=== PATIENT | male | born 1935 | race Asian ===

== ENCOUNTER 2019-07-15 22:28 | Inpatient (IN) | payer MEDICARE, OTHER ==
[~2019-07-15] VITALS: Ht 170.2 cm; Wt 56.2 kg
[2019-07-15] MEDS ORDERED: HALOPERIDOL LACTATE 5 MG/1 ML VIAL IM ONE ×2 (23:00→23:45)
[2019-07-15] MEDS ORDERED: HALOPERIDOL LACTATE 5 MG/1 ML VIAL ONE (23:07)
[2019-07-15 23:20] LABS: BASOPHILS # (AUTO) 0.1 K/uL (0.0-8.0); BASOPHILS % (AUTO) 0.7 % (0.0-2.0); EOSINOPHILS # (AUTO) 0.4 K/uL (0.0-0.7); EOSINOPHILS % (AUTO) 4.6 % (0.0-7.0); HEMATOCRIT 34.1 % (36.7-47.1); HEMOGLOBIN 11.2 g/dL (12.5-16.3); LYMPHOCYTES # (AUTO) 2.7 K/uL (20.0-40.0); LYMPHOCYTES % (AUTO) 32.3 % (20.5-51.5); MEAN CORPUSCULAR HEMOGLOBIN 31.9 uug (23.8-33.4); MEAN CORPUSCULAR HGB CONC 33 g/dL (32.5-36.3); MEAN CORPUSCULAR VOLUME 97.4 fL (73.0-96.2); MONOCYTES # (AUTO) 0.7 K/uL (2.0-10.0); MONOCYTES % (AUTO) 8.8 % (0.0-11.0); NEUTROPHILS # (AUTO) 4.4 K/uL (1.8-8.9); NEUTROPHILS % (AUTO) 53.6 % (38.5-71.5); PLATELET COUNT (AUTO) 202 K/uL (152-348); WHITE BLOOD COUNT (AUTO) 8.3 K/uL (3.6-10.2)
[2019-07-15 23:27] LABS: CARBON DIOXIDE 27 mmol/L (21-32); CHLORIDE 106 mmol/L (98-107); CREATININE 2.1 mg/dL (0.6-1.3); GLUCOSE 93 mg/dL (74-106); POTASSIUM 4.4 mmol/L (3.5-5.1); UREA NITROGEN, BLOOD 49 mg/dL (7-18)
[2019-07-15 23:42] LABS: ACETAMINOPHEN < 2.0 ug/mL (10-30); ALANINE AMINOTRANSFERASE 20 U/L (16-63); ALKALINE PHOSPHATASE 119 U/L (50-136); ASPARTATE AMINOTRANSFERASE 18 U/L (15-37); BILIRUBIN,DIRECT 0.1 mg/dL (0.0-0.2); BILIRUBIN,TOTAL 0.4 mg/dL (0.2-1.0); TOTAL PROTEIN, SERUM 7.4 g/dL (6.4-8.2)
[2019-07-15 23:48] LABS: ETHANOL < 3 MG/DL (0-0)
[2019-07-16 00:38] LABS: *BILIRUBIN,URIN NEGATIVE (NEGATIVE); *BLOOD, URINE NEGATIVE (NEGATIVE); *CLARITY,URINE CLEAR (CLEAR); *COLOR,URINE YELLOW (YELLOW); *KETONES,URINE NEGATIVE (NEGATIVE); *UROBILINOGEN,URINE 0.2 E.U./dl (NORMAL); LEUKOCYTE ESTERASE ,URINE NEGATIVE (NEGATIVE); NITRITE, URINE NEGATIVE (NEGATIVE); UGLUCOSE NEGATIVE (NEGATIVE)
[2019-07-16 00:50] VITALS: BP 157/88
[2019-07-16 00:53] LABS: *AMPHETAMINE, URINE NEGATIVE (NEGATIVE); *BARBITURATE, URINE NEGATIVE (NEGATIVE); *CANNABINOID, URINE NEGATIVE (NEGATIVE); *COCCAINE, URINE NEGATIVE (NEGATIVE); *OPIATE, URINE NEGATIVE (NEGATIVE); *PHENCYCLIDINE SCREEN,URINE NEGATIVE (NEGATIVE)
[2019-07-16] MEDS ORDERED: LORAZEPAM 0.5 MG TABLET PO PRN (01:30)
[2019-07-16] MEDS ORDERED: MAG HYDROX/AL HYDROX/SIMETH 30 ML LIQUID UDC PO PRN (01:30)
[2019-07-16] MEDS ORDERED: MAGNESIUM HYDROXIDE 30 ML LIQUID UDC PO PRN (01:30)
[2019-07-16] MEDS ORDERED: ACETAMINOPHEN 325 MG TABLET PO PRN (01:30)
[2019-07-16] MEDS ORDERED: BLOOD SUGAR DIAGNOSTIC 1 EACH STRIP VI ONE (01:30)
[2019-07-16 07:30] VITALS: BP 161/96
[2019-07-16] MEDS ORDERED: LOSARTAN POTASSIUM 25 MG TABLET PO SCH (10:45)
[2019-07-16] MEDS: CHOLECALCIFEROL 1,000 UNIT TABLET PO SCH (11:15)
[2019-07-16] MEDS: MULTIVIT, IRON, MIN NO. 8, FA TABLET PO SCH (11:15)
[2019-07-16 16:32] VITALS: BP 141/96
[2019-07-16] MEDS: BENZTROPINE MESYLATE 0.5 MG TABLET PO SCH (17:37)
[2019-07-16] MEDS: HALOPERIDOL 0.5 MG TABLET PO SCH (17:37)
[2019-07-16 20:46] VITALS: BP 156/78
[2019-07-17 07:30] VITALS: BP 147/86
[2019-07-17] MEDS: BENZTROPINE MESYLATE 0.5 MG TABLET PO SCH ×2 (11:11→17:06)
[2019-07-17] MEDS: CHOLECALCIFEROL 1,000 UNIT TABLET PO SCH (11:11)
[2019-07-17] MEDS: AMLODIPINE 5 MG TABLET PO SCH (11:12)
[2019-07-17] MEDS: HALOPERIDOL 0.5 MG TABLET PO SCH ×2 (11:12→17:06)
[2019-07-17] MEDS: MULTIVIT, IRON, MIN NO. 8, FA TABLET PO SCH (11:12)
[2019-07-17 15:23] VITALS: BP 148/84
[2019-07-17 20:21] VITALS: BP 151/84
[2019-07-18 07:30] VITALS: BP 120/81
[2019-07-18] MEDS: CHOLECALCIFEROL 1,000 UNIT TABLET PO SCH (08:42)
[2019-07-18] MEDS: AMLODIPINE 5 MG TABLET PO SCH (08:43)
[2019-07-18] MEDS: HALOPERIDOL 0.5 MG TABLET PO SCH ×2 (08:43→17:06)
[2019-07-18] MEDS: BENZTROPINE MESYLATE 0.5 MG TABLET PO SCH ×2 (08:43→17:06)
[2019-07-18] MEDS: MULTIVIT, IRON, MIN NO. 8, FA TABLET PO SCH (08:44)
[2019-07-18 13:21] LABS: *BILIRUBIN,URIN NEGATIVE (NEGATIVE); *BLOOD, URINE NEGATIVE (NEGATIVE); *CLARITY,URINE CLEAR (CLEAR); *COLOR,URINE LIGHT YELLOW (YELLOW); *KETONES,URINE NEGATIVE (NEGATIVE); *UROBILINOGEN,URINE 0.2 E.U./dl (NORMAL); LEUKOCYTE ESTERASE ,URINE NEGATIVE (NEGATIVE); NITRITE, URINE NEGATIVE (NEGATIVE); PH,URINE 6.5 (5.0-8.0); UGLUCOSE NEGATIVE (NEGATIVE)
[2019-07-18 14:26] LABS: *CREATININE,URINE < 13.0 mg/dL (30-125)
[2019-07-18 15:13] VITALS: BP 135/80
[2019-07-18 16:01] LABS: *URINE TOTAL PROTEIN RANDOM < 6.0 mg/dL (<150/24HR)
[2019-07-18 20:22] VITALS: BP 132/59
[2019-07-19 07:30] VITALS: BP 117/79
[2019-07-19] MEDS: HALOPERIDOL 0.5 MG TABLET PO SCH ×2 (08:52→16:54)
[2019-07-19] MEDS: CHOLECALCIFEROL 1,000 UNIT TABLET PO SCH (08:52)
[2019-07-19] MEDS: BENZTROPINE MESYLATE 0.5 MG TABLET PO SCH ×2 (08:52→16:54)
[2019-07-19] MEDS: AMLODIPINE 5 MG TABLET PO SCH (08:52)
[2019-07-19] MEDS: POLYVINYL ALCOHOL OPHT DROPS 15 ML BOTTLE EACHEYE PRN (08:53)
[2019-07-19] MEDS: MULTIVIT, IRON, MIN NO. 8, FA TABLET PO SCH (08:53)
[2019-07-19 15:50] VITALS: BP 110/63
[2019-07-19 20:58] VITALS: BP 132/80
[2019-07-20] MEDS: POLYVINYL ALCOHOL OPHT DROPS 15 ML BOTTLE EACHEYE PRN ×2 (00:56→22:11)
[2019-07-20 07:30] VITALS: BP 138/82
[2019-07-20 07:56] LABS: BASOPHILS # (AUTO) 0.1 K/uL (0.0-8.0); BASOPHILS % (AUTO) 0.8 % (0.0-2.0); EOSINOPHILS # (AUTO) 0.5 K/uL (0.0-0.7); HEMATOCRIT 33.5 % (36.7-47.1); HEMOGLOBIN 10.9 g/dL (12.5-16.3); LYMPHOCYTES # (AUTO) 2.1 K/uL (20.0-40.0); LYMPHOCYTES % (AUTO) 27.7 % (20.5-51.5); MEAN CORPUSCULAR HEMOGLOBIN 31.7 uug (23.8-33.4); MEAN CORPUSCULAR HGB CONC 32 g/dL (32.5-36.3); MEAN CORPUSCULAR VOLUME 97.8 fL (73.0-96.2); MONOCYTES # (AUTO) 0.7 K/uL (2.0-10.0); MONOCYTES % (AUTO) 8.8 % (0.0-11.0); NEUTROPHILS # (AUTO) 4.2 K/uL (1.8-8.9); NEUTROPHILS % (AUTO) 56.7 % (38.5-71.5); PLATELET COUNT (AUTO) 188 K/uL (152-348); RED BLOOD CELL COUNT(AUTO) 3.42 MIL/uL (4.06-5.63); WHITE BLOOD COUNT (AUTO) 7.4 K/uL (3.6-10.2)
[2019-07-20 08:02] LABS: ALANINE AMINOTRANSFERASE 16 U/L (16-63); ALKALINE PHOSPHATASE 84 U/L (50-136); ASPARTATE AMINOTRANSFERASE 22 U/L (15-37); BILIRUBIN,TOTAL 0.5 mg/dL (0.2-1.0); CARBON DIOXIDE 27 mmol/L (21-32); CHLORIDE 108 mmol/L (98-107); CREATINE KINASE, TOTAL 157 U/L (39-308); CREATININE 1.5 mg/dL (0.6-1.3); GLUCOSE 93 mg/dL (74-106); PHOSPHOROUS 3.4 mg/dL (2.5-4.9); POTASSIUM 4.4 mmol/L (3.5-5.1); TOTAL PROTEIN, SERUM 6.8 g/dL (6.4-8.2); UREA NITROGEN, BLOOD 40 mg/dL (7-18)
[2019-07-20] MEDS: CHOLECALCIFEROL 1,000 UNIT TABLET PO SCH (09:10)
[2019-07-20] MEDS: MULTIVIT, IRON, MIN NO. 8, FA TABLET PO SCH (09:10)
[2019-07-20] MEDS: BENZTROPINE MESYLATE 0.5 MG TABLET PO SCH ×2 (09:11→17:13)
[2019-07-20] MEDS: HALOPERIDOL 0.5 MG TABLET PO SCH ×2 (09:11→17:13)
[2019-07-20] MEDS: AMLODIPINE 5 MG TABLET PO SCH (09:11)
[2019-07-20 16:00] VITALS: BP 147/86
[2019-07-20 20:52] VITALS: BP 136/80
[2019-07-21 07:30] VITALS: BP 158/82
[2019-07-21 08:06] LABS: ALBUMIN 3.1 g/dL (2.9-4.4); ALPHA-1-GLOBULIN 0.2 g/dL (0.0-0.4); ALPHA-2-GLOBULIN 0.7 g/dL (0.4-1.0); GAMMA GLOBULIN 1.3 g/dL (0.4-1.8); GLOBULIN, TOTAL 3.2 g/dL (2.2-3.9); M-SPIKE Not Observed g/dL (Not Observed)
[2019-07-21] MEDS: CHOLECALCIFEROL 1,000 UNIT TABLET PO SCH (10:09)
[2019-07-21] MEDS: MULTIVIT, IRON, MIN NO. 8, FA TABLET PO SCH (10:09)
[2019-07-21] MEDS: BENZTROPINE MESYLATE 0.5 MG TABLET PO SCH ×2 (10:09→17:09)
[2019-07-21] MEDS: HALOPERIDOL 0.5 MG TABLET PO SCH ×2 (10:09→17:10)
[2019-07-21] MEDS: AMLODIPINE 5 MG TABLET PO SCH (10:10)
[2019-07-21] MEDS: CIPROFLOXACIN 0.3% OPHT DROP 2.5 ML BOTTLE RIGHTEYE SCH ×2 (16:53→20:50)
[2019-07-21 16:58] VITALS: BP 127/75
[2019-07-21 20:00] VITALS: BP 127/81
[2019-07-21] MEDS: TEMAZEPAM 7.5 MG CAPSULE PO PRN (21:59)
[2019-07-22] MEDS: CIPROFLOXACIN 0.3% OPHT DROP 2.5 ML BOTTLE RIGHTEYE SCH ×6 (02:57→19:59)
[2019-07-22] MEDS: HALOPERIDOL 0.5 MG TABLET PO SCH ×2 (08:37→16:57)
[2019-07-22] MEDS: BENZTROPINE MESYLATE 0.5 MG TABLET PO SCH ×2 (08:37→16:57)
[2019-07-22] MEDS: CHOLECALCIFEROL 1,000 UNIT TABLET PO SCH (08:38)
[2019-07-22] MEDS: MULTIVIT, IRON, MIN NO. 8, FA TABLET PO SCH (08:38)
[2019-07-22] MEDS: AMLODIPINE 5 MG TABLET PO SCH (08:38)
[2019-07-22 16:08] VITALS: BP 113/63
[2019-07-22 20:30] VITALS: BP 127/71
[2019-07-23] MEDS: CIPROFLOXACIN 0.3% OPHT DROP 2.5 ML BOTTLE RIGHTEYE SCH ×6 (04:00→20:58)
[2019-07-23 07:30] VITALS: BP 129/87
[2019-07-23] MEDS: BENZTROPINE MESYLATE 0.5 MG TABLET PO SCH ×2 (09:00→16:32)
[2019-07-23] MEDS: MULTIVIT, IRON, MIN NO. 8, FA TABLET PO SCH (09:00)
[2019-07-23] MEDS: CHOLECALCIFEROL 1,000 UNIT TABLET PO SCH (09:00)
[2019-07-23] MEDS: HALOPERIDOL 0.5 MG TABLET PO SCH ×2 (09:00→16:32)
[2019-07-23] MEDS: AMLODIPINE 5 MG TABLET PO SCH (09:00)
[2019-07-23 16:00] VITALS: BP 140/80
[2019-07-23 20:14] VITALS: BP 145/83
[2019-07-24] MEDS: CIPROFLOXACIN 0.3% OPHT DROP 2.5 ML BOTTLE RIGHTEYE SCH ×6 (00:08→20:36)
[2019-07-24] MEDS: TEMAZEPAM 7.5 MG CAPSULE PO PRN ×2 (00:12→23:44)
[2019-07-24 07:30] VITALS: BP 126/82
[2019-07-24] MEDS: BENZTROPINE MESYLATE 0.5 MG TABLET PO SCH ×2 (08:40→17:00)
[2019-07-24] MEDS: CHOLECALCIFEROL 1,000 UNIT TABLET PO SCH (08:40)
[2019-07-24] MEDS: HALOPERIDOL 0.5 MG TABLET PO SCH ×2 (08:40→17:00)
[2019-07-24] MEDS: MULTIVIT, IRON, MIN NO. 8, FA TABLET PO SCH (08:40)
[2019-07-24] MEDS: AMLODIPINE 5 MG TABLET PO SCH (08:41)
[2019-07-24 16:00] VITALS: BP 134/80
[2019-07-24 20:32] VITALS: BP 133/78
[2019-07-25] MEDS: CIPROFLOXACIN 0.3% OPHT DROP 2.5 ML BOTTLE RIGHTEYE SCH ×8 (00:11→23:41)
[2019-07-25 07:30] VITALS: BP 168/85
[2019-07-25] MEDS: HALOPERIDOL 0.5 MG TABLET PO SCH ×2 (08:49→16:48)
[2019-07-25] MEDS: BENZTROPINE MESYLATE 0.5 MG TABLET PO SCH ×2 (08:49→16:48)
[2019-07-25] MEDS: CHOLECALCIFEROL 1,000 UNIT TABLET PO SCH (08:49)
[2019-07-25] MEDS: AMLODIPINE 5 MG TABLET PO SCH (08:49)
[2019-07-25] MEDS: MULTIVIT, IRON, MIN NO. 8, FA TABLET PO SCH (08:49)
[2019-07-25] MEDS: POLYVINYL ALCOHOL OPHT DROPS 15 ML BOTTLE EACHEYE PRN (08:50)
[2019-07-25 16:36] VITALS: BP 154/83
[2019-07-25] MEDS: TRIAMCINOLONE ACET 0.1% CREAM 15 GM TUBE TOP SCH ×2 (16:47→19:23)
[2019-07-25 20:17] VITALS: BP 155/77
[2019-07-25] MEDS: TEMAZEPAM 7.5 MG CAPSULE PO PRN (22:38)
[2019-07-26] MEDS: CIPROFLOXACIN 0.3% OPHT DROP 2.5 ML BOTTLE RIGHTEYE SCH ×5 (04:00→20:00)
[2019-07-26 07:30] VITALS: BP 130/70
[2019-07-26] MEDS: CHOLECALCIFEROL 1,000 UNIT TABLET PO SCH (09:06)
[2019-07-26] MEDS: HALOPERIDOL 0.5 MG TABLET PO SCH ×2 (09:06→16:19)
[2019-07-26] MEDS: BENZTROPINE MESYLATE 0.5 MG TABLET PO SCH ×2 (09:06→16:19)
[2019-07-26] MEDS: AMLODIPINE 5 MG TABLET PO SCH (09:07)
[2019-07-26] MEDS: MULTIVIT, IRON, MIN NO. 8, FA TABLET PO SCH (09:08)
[2019-07-26] MEDS: TRIAMCINOLONE ACET 0.1% CREAM 15 GM TUBE TOP SCH ×3 (09:09→16:20)
[2019-07-26] MEDS: POLYVINYL ALCOHOL OPHT DROPS 15 ML BOTTLE EACHEYE PRN (09:09)
[2019-07-26 17:05] VITALS: BP 143/88
[2019-07-26 20:00] VITALS: BP 130/73
[2019-07-27] MEDS: CIPROFLOXACIN 0.3% OPHT DROP 2.5 ML BOTTLE RIGHTEYE SCH ×4 (04:55→12:28)
[2019-07-27 07:30] VITALS: BP 137/86
[2019-07-27] MEDS: TRIAMCINOLONE ACET 0.1% CREAM 15 GM TUBE TOP SCH ×2 (08:10→12:29)
[2019-07-27] MEDS: MULTIVIT, IRON, MIN NO. 8, FA TABLET PO SCH (08:11)
[2019-07-27] MEDS: CHOLECALCIFEROL 1,000 UNIT TABLET PO SCH (08:11)
[2019-07-27] MEDS: HALOPERIDOL 0.5 MG TABLET PO SCH (08:11)
[2019-07-27] MEDS: BENZTROPINE MESYLATE 0.5 MG TABLET PO SCH (08:11)
[2019-07-27] MEDS: AMLODIPINE 5 MG TABLET PO SCH (08:11)
[2019-07-27 15:13] VITALS: BP 130/75
[2019-07-28] MEDS ORDERED: AMLODIPINE 10 MG TABLET PO SCH (09:00)
== END 2019-07-27 15:30 | DRG 885 ==
LOC: ER 22:32 → GPS 07-16 00:31
PROVIDERS: ADMIT Psychiatry & Neurology Psychiatry; ATTEND Hospitalist
DX: F20.9 Schizophrenia, unspecified (principal); N17.0 Acute kidney failure with tubular necrosis; G93.41 Metabolic encephalopathy; E87.1 Hypo-osmolality and hyponatremia; E44.0 Moderate protein-calorie malnutrition; M84.48XA Pathological fracture, other site, initial encounter for fracture; Z68.1 Body mass index [BMI] 19.9 or less, adult; F29 Unspecified psychosis not due to a substance or known physiological condition; I95.1 Orthostatic hypotension; H04.123 Dry eye syndrome of bilateral lacrimal glands; I10 Essential (primary) hypertension; H10.9 Unspecified conjunctivitis; F03.90 Unspecified dementia, unspecified severity, without behavioral disturbance, psychotic disturbance, mood disturbance, and anxiety; D64.9 Anemia, unspecified; H04.129 Dry eye syndrome of unspecified lacrimal gland; Z88.1 Allergy status to other antibiotic agents; Z79.899 Other long term (current) drug therapy; L30.9 Dermatitis, unspecified; F39 Unspecified mood [affective] disorder
CPT/HCPCS: 36415; 70450; 80307; 83605; 83735; 83970; 84100; 84155; 84156; 84165; 84300; 84443; 85025; 87040; 87086; 93005; A4663; G0480; G0480-TC; J1630